=== PATIENT | male | born 1960 | race Caucasian/White ===

== ENCOUNTER → 2022-01-27 | Day surgery (SDC) | payer OTHER ==
[~2022-01-27] VITALS: Ht 167.6 cm; Wt 72.6 kg
[~2022-01-27] MED LIST: OMEPRAZOLE 20MG20 MG PO; PRINIVIL10 MG PO
[2022-01-27 08:48] LABS: HCT 51.6 % (42.0-52.0); HGB 17.4 g/dl (13.2-18.0); MCH 32.8 pg (25.0-31.0); MCHC 33.7 g/dL (32.0-36.0); MCV 97.4 fL (78.0-100.0); MPV 9.6 fL (6.0-9.5); RBC 5.3 M/uL (4.70-6.00); RDW 12.9 % (11.5-14.0); WBC 5.8 K/uL (4.0-10.5)
[2022-01-27 09:04] LABS: ALBUMIN 4.3 g/dL (3.4-5.0); BILIRUBIN - TOTAL 2.1 mg/dL (0.2-1.0); BUN/CREAT RATIO (CALC) 14.8 RATIO; CREATININE 0.88 mg/dL (0.67-1.17); GLOBULIN (CALCULATION) 3.9 g/dL; POTASSIUM 4.1 mmol/L (3.5-5.1); TOTAL PROTEIN 8.2 g/dL (6.4-8.2)
== END | disposition home or self-care (01) ==
LOC: FAS 01-25 10:00
PROVIDERS: Surgery
DX: Z12.11 Encounter for screening for malignant neoplasm of colon (principal); I10 Essential (primary) hypertension; K21.9 Gastro-esophageal reflux disease without esophagitis
CPT/HCPCS: 36415; 80053; J2250; J2704; J7120